=== PATIENT | female | born 1985 | race African-American/Black ===

== ENCOUNTER 2021-09-28 09:46 | Emergency (ER) | payer MEDICAID ==
[~2021-09-28] VITALS: Ht 172.7 cm; Wt 101.0 kg
[2021-09-28 10:10] VITALS: BP 122/82
[2021-09-28 10:53] LABS: BASOPHILS % 0.4 % (0.0-2.0); EOSINOPHILS % 0.2 % (0.0-5.0); HEMATOCRIT. 33.4 % (36.0-48.0); HEMOGLOBIN. 11.1 g/dL (12.0-16.0); LYMPHOCYTES % 18.6 % (20.0-50.0); MEAN CORPUSCULAR HEMOGLOBIN 30.2 pg (28.0-32.0); MEAN CORPUSCULAR VOLUME 91.2 fL (81.0-99.0); MEAN PLATELET VOLUME 8.8 fl (7.4-10.4); MONOCYTES % 7.5 % (2.0-8.0); NEUTROPHILS % 73.3 % (40.0-76.0); PLATELET 269 x1000/uL (130-400); RED BLOOD CELL COUNT 3.66 mill/uL (4.2-5.4); RED CELL DISTRIBUTION WIDTH 14.7 % (11.6-14.6)
[2021-09-28 11:00] LABS: CHLORIDE 111 mEq/L (98-107)
[2021-09-28 11:01] LABS: HCG SCREEN NEGATIVE
[2021-09-28 12:47] LABS: CLARITY URINE CLEAR (CLEAR); COLOR URINE YELLOW (YELLOW); KETONES URINE TRACE (NEGATIVE); LEUKOCYTE ESTERASE URINE NEGATIVE (NEGATIVE); NITRITE URINE NEGATIVE (NEGATIVE); OCCULT BLOOD URINE 2+ (NEGATIVE); PH URINE 6.5 (4.5-8.0); PROTEIN URINE NEGATIVE (NEGATIVE); SPECIFIC GRAVITY URINE 1.026 (1.005-1.030)
[2021-09-28] MEDS ORDERED: METR375C2 PO (13:07)
[2021-09-28] MEDS ORDERED: DOXY-326 PO (13:07)
[2021-09-28] MEDS ORDERED: CEFTRIAXONE SODIUM 500 MG/VIAL IM NR (13:30)
== END 2021-09-28 13:35 | disposition home or self-care (01) ==
LOC: ER 09:46
DX: N92.0 Excessive and frequent menstruation with regular cycle (principal); R06.00 Dyspnea, unspecified; R05.9 Cough, unspecified; Z20.2 Contact with and (suspected) exposure to infections with a predominantly sexual mode of transmission; Z20.822 Contact with and (suspected) exposure to COVID-19
CPT/HCPCS: 36415; 71045; 80048; 80076; 81003; 83690; 84703; 85025; 85379; 87426; 99284; C9803; J0696